=== PATIENT | female | born 1960 | race Caucasian/White ===

== ENCOUNTER 2018-04-29 06:22 | Day surgery (SDC) | payer OTHER ==
[~2018-04-29 06:22] MED LIST: Dextrose 5%-0.45% NaCl 1,000 ML IV SCH; Sodium Chloride 0.9% 10 ML Syringe FLUSH PRN
[2018-04-29] MEDS ORDERED: Midazolam 1 MG/ML 2 ML SDV IV ONE ×3 (06:23→07:33)
[2018-04-29] MEDS ORDERED: fentaNYL 100 MCG/2 ML SDV IV ONE ×3 (06:23→07:32)
[2018-04-29] MEDS ORDERED: Midazolam 1 MG/ML 2 ML SDV ONE (06:55)
[2018-04-29] MEDS ORDERED: fentaNYL 100 MCG/2 ML SDV ONE (06:56)
--- NOTE | 2018-04-29 08:31 | OR ---
DATE: 04/29/2018 PROCEDURES: Esophagogastroduodenoscopy and multiple pinch biopsies. INSTRUMENT USED: GIF-H180 Olympus video panendoscope. PREMEDICATIONS: No oral topical anesthesia used. Fentanyl 100 mcg intravenous, Versed 2 mg intravenous. The procedure was done under pulse oximetry, BP recording, and dietary assistant. INDICATION: The patient with longstanding heartburn, persistent in nature, on PPI. DESCRIPTION OF PROCEDURE: Esophagogastroduodenoscopy is performed for detection of any active erosive lesions. Lund esophagus and/or malignancy also under consideration. Endoscopic hemostasis therapy if needed. The scope was passed with ease. Adequate visualization of the esophagus was made from proximal to distal areas. No upper esophageal lesions identified. No distal esophageal stricture. No uphill or downhill esophageal varices. No Gabriella-Heard tear. No evidence of erosive esophagitis by [place] criteria. No esophageal polyp or tumor mass identified. Z-line was seen at around 40 cm distal to the oral verge, configuration consistent with grade 1 by ZAP classification. No esophageal polyp or tumor mass identified. No proximal gastric varices noted. Gastric fundus examination by retroflexion showed multiple diminutive benign-appearing polyps. No gastric ulcer, malignant mass, or vascular ectasia identified. Diminutive submucosal benign-appearing lesion was noted in the antrum. Multiple pinch biopsies were obtained and sent for histopathology. Multiple pinch biopsies were also taken from the gastric antrum and proximal body and sent for PyloriTek test for H. pylori and histopathology. Duodenal bulb showed no ulcer. Visualized second part of the duodenum was unremarkable. No bleeding was noted from any of the visualized areas at the completion of examination. Photographs were taken of the duodenal bulb, gastric antrum, fundus, and distal esophagus. IMPRESSION: Diminutive gastric fundus polyps. The patient tolerated the procedure well. [facility] /[id number]
--- NOTE | 2018-04-29 08:50 | LETTER ---
04/29/2018 Aleksandra Aguila MD [facility] [address] [place] [address], [place] [address] RE: BOGDAN MONROY : [address] Aguila: Ms. Bogdan Monroy had esophagogastroduodenoscopy done this morning and she tolerated the procedure well. I herewith send a copy of the endoscopy note and photographs for your review. Thank you, Sincerely, [facility] /[id number]
== END 2018-04-29 09:42 | disposition home or self-care (01) ==
LOC: DL.ENDO 06:22
PROVIDERS: ATTEND Internal Medicine Gastroenterology
DX: R12 Heartburn (principal); K29.50 Unspecified chronic gastritis without bleeding; K31.7 Polyp of stomach and duodenum; I10 Essential (primary) hypertension; E66.09 Other obesity due to excess calories
CPT/HCPCS: 43239; 87077; J7042; J2250; J3010